=== PATIENT | female | born 2000 | race Caucasian/White ===

== ENCOUNTER 2020-11-11 11:41 | Emergency (ER) | payer BC ==
[~2020-11-11] VITALS: Ht 170.2 cm; Wt 59.1 kg
[2020-11-11 11:46] VITALS: TEMP 97.5
[2020-11-11 12:02] LABS: COLLECTION METHOD CLEAN CATCH
[2020-11-11 12:10] LABS: PH 6 (5-8); SQUAMOUS EPITHELIAL 0-2 /hpf; URINE APPEARANCE Clear; URINE BACTERIA Rare /hpf; URINE BILIRUBIN Negative (NEGATIVE); URINE BLOOD Negative (NEGATIVE); URINE COLOR Yellow; URINE GLUCOSE Negative (NEGATIVE); URINE KETONE Negative (NEGATIVE); URINE LEUKOCYTE ESTERASE Negative (NEGATIVE); URINE NITRATE Negative (NEGATIVE); URINE PROTEIN(semi-quant) Negative (NEGATIVE); URINE RBC None Seen /hpf; URINE UROBILINOGEN Negative (NEGATIVE)
[2020-11-11 12:26] LABS: BASO % 0.7 % (0.0-2.0); EOS # 0.1 (0.0-0.7); EOS % 2.5 % (0-4.0); GRAN # 2.1 (1.4-6.5); GRAN % 47.2 % (42.2-75.2); HEMATOCRIT 39.5 % (35.0-45.0); HEMOGLOBIN 13.1 g/dl (12.0-15.0); LYMPH # 1.9 (1.2-3.4); MEAN CELL VOLUME 87 fl (80.0-95.0); MEAN CORPUSCULAR HEMOGLOBIN 29 pg (26.0-32.0); MEAN CORPUSCULAR HGB CONC 33 g/dl (33.0-37.0); MEAN PLATELET VOLUME 10.7 fl (7.4-10.4); MONO # 0.2 (0.1-0.6); MONO % 5.4 % (1.7-9.3); PLATELET COUNT 245 K/mm3 (130-400); RED BLOOD COUNT 4.56 M/mm3 (4.10-5.30); REDCELL DISTRIBUTION WIDTH-CV 13.4 % (11.5-14.5)
[2020-11-11 12:34] LABS: ALANINE AMINOTRANSFERASE 16 U/L (4-34); ALBUMIN 4.7 gm/dL (3.5-5.0); ALKALINE PHOSPHATASE 51 U/L (50-136); ANION GAP 10 mmol/L (7-16); AST,SGOT 25 U/L (15-37); BILIRUBIN,TOTAL 0.6 mg/dL (0.0-1.0); BLOOD UREA NITROGEN 13 mg/dL (7-17); CALCIUM 9.4 mg/dL (8.4-10.2); CARBON DIOXIDE 27 mmol/L (22-30); CHLORIDE 106 mmol/L (98-107); CREATININE, serum 0.84 (0.52-1.25); GLUCOSE 116 mg/dL (74-106); POTASSIUM 4.3 mmol/L (3.4-5.0); SODIUM 143 mmol/L (137-145); TOTAL PROTEIN 7.6 gm/dL (6.4-8.2)
[2020-11-11 12:36] LABS: C-REACTIVE PROTEIN < 0.5 mg/dL (0.0-0.9)
[2020-11-11 15:12] VITALS: BP 113/74; PULSE 62
== END 2020-11-11 14:46 | disposition home or self-care (01) ==
LOC: COL.ER 11:41
PROVIDERS: Physician Assistant
DX: K59.00 Constipation, unspecified (principal); Z32.02 Encounter for pregnancy test, result negative
CPT/HCPCS: J1885; J7030

== ENCOUNTER 2021-07-02 20:08 | Emergency (ER) | payer BC ==
[~2021-07-02] VITALS: Ht 172.7 cm; Wt 61.4 kg
[2021-07-02 20:14] VITALS: TEMP 97.8
[2021-07-02 20:51] LABS: BASO % 0.6 % (0.0-2.0); EOS # 0.1 K/mm3 (0.0-0.7); EOS % 2.1 % (0.0-4.0); GRAN # 2.1 K/mm3 (1.4-6.5); HEMATOCRIT 39.1 % (35.0-45.0); HEMOGLOBIN 13.6 g/dl (12.0-15.0); LYMPH # 2.7 K/mm3 (1.2-3.4); LYMPH % 50.7 % (20.0-51.0); MEAN CELL VOLUME 86 fl (80.0-95.0); MEAN CORPUSCULAR HEMOGLOBIN 30 pg (26-32); MEAN CORPUSCULAR HGB CONC 35 g/dl (33.0-37.0); MEAN PLATELET VOLUME 10.8 fl (7.4-10.4); MONO # 0.3 K/mm3 (0.1-0.6); MONO % 6.4 % (1.7-9.3); PLATELET COUNT 243 K/mm3 (130-400); RED BLOOD COUNT 4.54 M/mm3 (4.10-5.30); REDCELL DISTRIBUTION WIDTH-CV 11.9 % (11.5-14.5)
[2021-07-02 21:01] LABS: COLLECTION METHOD CLEAN CATCH
[2021-07-02 21:07] LABS: PH 7 (5-8); SQUAMOUS EPITHELIAL 0-2 /hpf (0-10); URINE APPEARANCE Clear (CLEAR/HAZY); URINE BACTERIA Rare /hpf (NONE SEEN); URINE BILIRUBIN Negative (NEGATIVE); URINE BLOOD Negative (NEGATIVE); URINE COLOR Straw (YELLOW); URINE GLUCOSE Negative (NEGATIVE); URINE KETONE Negative (NEGATIVE); URINE LEUKOCYTE ESTERASE Negative (NEGATIVE); URINE NITRATE Negative (NEGATIVE); URINE PROTEIN(semi-quant) Negative (NEGATIVE); URINE RBC 0-2 /hpf (0-2); URINE UROBILINOGEN Negative (NEGATIVE)
[2021-07-02 21:09] LABS: ALBUMIN 4.3 gm/dL (3.5-5.0); ALKALINE PHOSPHATASE 62 U/L (40-150); ANION GAP 8 mmol/L (7-16); AST,SGOT 12 U/L (5-34); BILIRUBIN,TOTAL 0.3 mg/dL (0.2-1.2); BLOOD UREA NITROGEN 8 mg/dL (7-19); C-REACTIVE PROTEIN 0.04 mg/dL (0.00-0.50); CALCIUM 8.7 mg/dL (8.4-10.2); CARBON DIOXIDE 23 mmol/L (22-29); CHLORIDE 108 mmol/L (98-107); CREATININE, serum 0.78 mg/dL (0.57-1.11); GLUCOSE 90 mg/dL (70-99); POTASSIUM 3.8 mmol/L (3.5-4.5); SODIUM 139 mmol/L (136-145); TOTAL PROTEIN 6.6 gm/dL (6.2-8.1)
[2021-07-02 21:13] LABS: ALANINE AMINOTRANSFERASE < 6 U/L (0-55)
[2021-07-02 21:22] LABS: TRICYCLIC ANTIDEPRESS URINE NEGATIVE
[2021-07-02 21:42] VITALS: BP 117/74; PULSE 77
== END 2021-07-02 21:44 | disposition home or self-care (01) ==
LOC: COL.ER 20:08
PROVIDERS: Family Medicine
DX: R55 Syncope and collapse (principal); Z28.311 Partially vaccinated for COVID-19